=== PATIENT | male | born 1945 | race Caucasian/White ===

== ENCOUNTER 2022-09-03 06:57 | Day surgery (SDC) | payer OTHER ==
[~2022-09-03] VITALS: Ht 177.8 cm; Wt 54.4 kg
[2022-09-03] VITALS (8 sets, daily range): BP systolic 92–132; BP diastolic 51–66
[2022-09-03] MEDS ORDERED: ALBUTEROL SULF 2.5 MG/0.5ML(0.5%) NEB SOLN NEB ONE (09:00)
[2022-09-03] MEDS ORDERED: ANGIOMAX 250 MG VIAL IV ONE (09:06)
[2022-09-03] MEDS ORDERED: HEPARIN SODIUM (PORCINE) 5000 UNITS/ML 1ML VIAL ONE (09:07)
[2022-09-03] MEDS ORDERED: VERAPAMIL 2.5MG/ML INJ 2ML VIAL IV ONE (09:07)
[2022-09-03] MEDS ORDERED: MIDAZOLAM HCL 2MG/2ML 2ml VIAL (1mg/ml) ONE (09:08)
[2022-09-03] MEDS ORDERED: fentaNYL CITRATE 100 MCG/2 ML VL ONE (09:08)
[2022-09-03] MEDS ORDERED: SODIUM CHL 0.9% 0 ML ONE (09:08)
[2022-09-03] MEDS ORDERED: LIDOCAINE 2%HCL (LOCAL ANESTH.) INJ 10ml MDV ONE (09:09)
[2022-09-03] MEDS ORDERED: IODIXANOL 320MG/ML 100ML BTL IV ONE (09:09)
[2022-09-03] MEDS ORDERED: ALBUTEROL SULF HFA 90MCG INH 200DOSE IN SCH (14:00)
== END 2022-09-03 14:07 | disposition home or self-care (01) ==
LOC: CATH 06:57
PROVIDERS: ATTEND Internal Medicine Cardiovascular Disease
DX: R06.02 Shortness of breath (principal); I10 Essential (primary) hypertension; I25.10 Atherosclerotic heart disease of native coronary artery without angina pectoris; I25.5 Ischemic cardiomyopathy; I25.82 Chronic total occlusion of coronary artery; E78.5 Hyperlipidemia, unspecified; Z79.899 Other long term (current) drug therapy; Z20.822 Contact with and (suspected) exposure to COVID-19
CPT/HCPCS: 93458; 94640; C1887; C1894; J1644; J2001; J2250; J3010; J7030; Q9967; U0003; 99152

== ENCOUNTER 2025-10-12 12:04 | Day surgery (SDC) | payer BC ==
[~2025-10-12] VITALS: Ht 177.8 cm; Wt 56.7 kg
[2025-10-12] VITALS (7 sets, daily range): BP systolic 136–174; BP diastolic 67–99; PULSE 66–91; RESP 10–25; O2SAT 88–95
[~2025-10-12 12:04] MED LIST: ASPI1TAB20 PO; ATEN50TA PO; ATOR20TA PO; FLUT1INH6 IN; LOSA-534 PO; PRE1T PO
[2025-10-12] MEDS: ANGIOMAX 250 MG VIAL IV ONE (13:05)
[2025-10-12] MEDS: HEPARIN SODIUM (PORCINE) 5000 UNITS/ML 1ML VIAL ONE (13:05)
[2025-10-12] MEDS: VERAPAMIL 2.5MG/ML INJ 2ML VIAL IV ONE (13:05)
[2025-10-12] MEDS: SODIUM CHL 0.9% 0 ML ONE (13:06)
[2025-10-12] MEDS: fentaNYL CITRATE 100 MCG/2 ML VL ONE (13:06)
[2025-10-12] MEDS: IODIXANOL 320MG/ML 100ML BTL IV ONE (13:06)
[2025-10-12] MEDS: MIDAZOLAM HCL 2MG/2ML 2ml VIAL (1mg/ml) ONE (13:06)
[2025-10-12] MEDS: LIDOCAINE 2%HCL (LOCAL ANESTH.) INJ 20ML MDV ONE (13:06)
--- NOTE | 2025-10-12 14:27 | DVHOP2 ---
Operative Report - 2 Report Details Date: 10/12/25 Preop Diagnosis: CAD Postop Diagnosis: CAD Surgeon: Curt Calhoun MD Anesthesiologist: Conscious sedation, I personally supervised the administration of medications for conscious sedation and monitored the patient for approximately 20 minutes throughout the procedure. No complications Anesthesia: General, Mac, Local Consent: The patient was informed of the risks and benefits of the procedure. These inc lude but are not limited to complications of anesthesia, postoperative infection, incomplete relief of symptoms, recurrence of symptoms, damage to blood vessels, nerves and tendons, deep venous thrombosis, pulmonary embolism and possible need for repeat surgery in the future. Complications: Complications Findings: CAD Indications for Surgery: Abnormal stress test Name of Procedure Performed Left heart catheterization. Bilateral cine coronary angiography. Left ventriculography. Procedure Details Procedure Details: Prior local anesthesia with 2% lidocaine to the right wrist and full informed consent obtained the patient was prepped and draped in usual fashion followed by placement of a six [place] slim sheath into the radial artery through which a tiger catheter was used for ventriculography and cannulation of both right and left coronary ostia without complications. Hemodynamics: The aortic blood pressure was 150/90. End-diastolic pressure was six. There was no gradient across the aortic valve on pullback. Coronary anatomy: The RCA is 100% occluded proximally. Left main is large. There is an ostial 25-30% stenosis. The mid and distal segments are free of significant disease. Left anterior descending coronary artery is a large vessel it has moderate yamilet cification. There is no significant critical disease present in the left anterior descending coronary artery. The mid and distal LAD have mild plaquing and calcification without critical lesions. Diagonals and septals are normal. The circumflex is large with two obtuse marginals. The 1st marginal is large and proximal. No critical lesions present within the circumflex or marginals noted. Collateralization is noted to the distal posterolateral RCA branch. Ventriculography in the RILEY projection shows an EF of 55-60% without wall motion abnormalities. Impression: Normal left ventricular end-diastolic pressure at rest. Normal ejection fraction. Moderate coronary artery disease as delineated above involving the RCA and ostial left main without critical lesions in the left main and adequate collateralization to the distal right with a normal ejection fraction Recommendations: Medical therapy is warranted continue risk factor modification. Condition Good Disposition Home Date of Service: Oct 12, 2025 Billing Provider: CURT CALHOUN Sr., MD Cardiology Common Codes: 38122-SOTDBGZ INP/OBS CARE (High) Cardiology Procedure Codes: 21311-ZPNM HEART CATH W/INTRA INJ CURT CALHOUN Sr., MD Oct 12, 2025 14:27
== END 2025-10-12 16:45 | disposition home or self-care (01) ==
LOC: CATH 12:04
PROVIDERS: ATTEND Internal Medicine
DX: I25.10 Atherosclerotic heart disease of native coronary artery without angina pectoris (principal); I25.84 Coronary atherosclerosis due to calcified coronary lesion; R94.39 Abnormal result of other cardiovascular function study; F17.210 Nicotine dependence, cigarettes, uncomplicated; Z79.82 Long term (current) use of aspirin; Z79.899 Other long term (current) drug therapy
CPT/HCPCS: 93458; C1769; C1894; J1644; J2250; J3010; J7030; Q9967; 99152